=== PATIENT | female | born 1945 | race Asian ===

== ENCOUNTER 2017-01-02 09:47 | Emergency (ER) | payer SELFPAY ==
[~2017-01-02 09:47] MED LIST: ATOR20TA PO; OLME20TA15 PO; OSEL75CA PO
--- NOTE | 2017-01-02 10:10 | NUR ---
PT CALLED TO TRIAGE, PT NOT IN WAITING ROOM
== END 2017-01-02 10:51 | disposition left against medical advice (07) ==
LOC: ER 09:49
DX: Z53.21 Procedure and treatment not carried out due to patient leaving prior to being seen by health care provider (principal)